=== PATIENT | female | born 1960 | race Caucasian/White ===

== ENCOUNTER 2021-07-12 20:56 | Emergency (ER) | payer BC ==
[~2021-07-12] VITALS: Ht 160 cm; Wt 92.5 kg
--- NOTE | 2021-07-12 21:00 | NUR ---
Pt placed in to room 1B by coagulant dipper Jez for pain in lt wrist s/p ground level trip and fall. Pt states that she held out her arm to protect her face as she fell. Pt is unable to more lt wrist and is complaining of mild to moderate pain. pt is otherwise healthy with no serious med issues. VSS, pe wnl besides injured wrist. pt has good color and appearance, pt complaining of 6 out of 10 pain upon movement. Denies any sob, fv, n/v, dizziness, or discomfort. No s/sx of distress noted.
--- NOTE | 2021-07-12 21:05 | NUR ---
EDMD at bedside to eval pts condition.
--- NOTE | 2021-07-12 21:15 | NUR ---
XRay at bedside for diagnostic exam.
[2021-07-12] MEDS ORDERED: OXYC-128 PO (21:55)
--- NOTE | 2021-07-12 22:10 | NUR ---
EDMD at bedside discussing dispos with pt. EDMD ordered posterior short arm splint applied to Lt wrist injury, and then dc home.
--- NOTE | 2021-07-12 22:15 | NUR ---
Pts skin padded with 3 and 4 inch stockinette. then 3in by 15in fiberglass posterior short arm splint applied and wrapped with one 4 in and one 2 in jill wrap, making sure and taking great care not to wrap too tightly. Pt has great cms before and after application of splint.
--- NOTE | 2021-07-12 22:45 | NUR ---
Pt given DC instructions and med infor and pt confirms understanding of aftercare and med info. VSS, PE wnl, pt confirms comfort of splint and is happy with the care she received and very greatful. Pt denies any pain, sob, dizziness, n/v. No s/sx of distress.
[2021-07-12 23:26] VITALS: BP 129/72
== END 2021-07-12 22:45 | disposition home or self-care (01) ==
LOC: ER 21:10
DX: S52.572A Other intraarticular fracture of lower end of left radius, initial encounter for closed fracture (principal); W01.0XXA Fall on same level from slipping, tripping and stumbling without subsequent striking against object, initial encounter; Y92.89 Other specified places as the place of occurrence of the external cause; Z98.84 Bariatric surgery status
CPT/HCPCS: 73110; A4663